=== PATIENT | female | born 1970 | race Two or more races ===

== ENCOUNTER 2018-02-28 16:30 | Outpatient (CLI) | payer OTHER | END 2018-02-28 16:48 | disposition home or self-care (01) | LOC: RAD 16:30 | DX: M25.521 Pain in right elbow (principal) ==

== ENCOUNTER 2018-03-01 13:03 | Outpatient (CLI) | payer OTHER | END 2018-03-01 14:53 | disposition home or self-care (01) | LOC: LAB 13:03 | DX: Z00.00 Encounter for general adult medical examination without abnormal findings (principal); N39.0 Urinary tract infection, site not specified; R10.9 Unspecified abdominal pain ==